=== PATIENT | female | born 1980 | race Caucasian/White ===

== ENCOUNTER 2017-06-24 12:25 | Emergency (ER) | payer OTHER ==
[2017-06-24 12:57] VITALS: BP 113/83
--- NOTE | 2017-06-24 13:08 | UC ---
Throat Pain/Nasal Ryan HPI - HPI Summary HPI Summary: Pt presents with sore throat for 2 weeks and sinus pain/pressure/congestion for 1 week. She tells me that she is 17 weeks . Has been taking tylenol for her discomfort with good relief. Denies fever, chills, cough, SOB, chest pain, abdominal pain/cramping. - History of Current Complaint Chief Complaint: UCRespiratory Stated Complaint: SINUS ISSUE Time Seen by Provider: 06/24/17 13:08 Hx Obtained From: Patient Hx Last Menstrual Period: 02/21/17 ?: Yes - 17 weeks Onset/Duration: Gradual Onset Severity: Moderate Pain Intensity: 6 Pain Scale Used: 0-10 Numeric - Allergies/Home Medications Allergies/Adverse Reactions: Allergies Allergy/AdvReac Type Severity Reaction Status Date / Time clarithromycin [From Biaxin] Allergy Anaphylatic Verified 06/24/17 12:58 Shock Home Medications: Home Medications Acetaminophen [Tylenol] 500 mg PO ONCE 06/24/17 [History Confirmed 06/24/17] Doxylamine/Pyridoxine(NF) [Diclegis (NF)] 1 tab PO BEDTIME 06/24/17 [History Confirmed 06/24/17] PMH/Surg Hx/FS Hx/Imm Hx Previously Healthy: Yes Respiratory History: Asthma - Surgical History Surgical History: Yes Surgery Procedure, Year, and Place: sinus surgery, tonsillectomy - Family History Known Family History: Positive: Respiratory Disease - Social History Occupation: Employed Full-time Lives: With Family Alcohol Use: None Substance Use Type: None Smoking Status (MU): Never Smoked Tobacco Review of Systems Constitutional: Negative Skin: Negative Eyes: Negative ENT: Sore Throat, Nasal Discharge, Sinus Congestion, Sinus Pain/Tenderness Respiratory: Negative Cardiovascular: Negative Gastrointestinal: Negative Musculoskeletal: Negative Neurological: Negative Psychological: Negative All Other Systems Reviewed And Are Negative: Yes Physical Exam - Summary Physical Exam Summary: GENERAL: NAD. WDWN HEENT: NC/AT. Conjunctiva clear without inflammation or discharge. TMs intact , no bulging, erythema, or edema. Nasal mucosa mildly swollen and erythematous with yellow/clear discharge. No polyps noted. TTP maxillary and frontal sinus. Posterior oropharynx without exudates, erythema, or tonsillar enlargement. Uvula midline. NECK: Supple without lymphadenopathy CHEST: CTAB. No r/r/w. No accessory muscle use. Breathing comfortably and in no distress. CV: RRR. Without m/r/g. Pulses intact. SKIN: No rash or erythema noted. NEURO: Alert. CN II-XII grossly intact. PSYCH: Age appropriate behavior. Triage Information Reviewed: Yes Vital Signs: Initial Vital Signs Temp 98.4 F 06/24/17 12:54 Pulse 85 06/24/17 12:54 Resp 18 06/24/17 12:54 BP 113/83 06/24/17 12:54 Pulse Ox 100 06/24/17 12:54 Throat Pain/Nasal Course/Dx - Course Course Of Treatment: POC flu negative. Sinusitis - Differential Dx/Diagnosis Provider Diagnoses: Sinusitis Discharge - Discharge Plan Condition: Stable Disposition: HOME Prescriptions: Amoxicillin PO (*) [Amoxicillin 500 MG CAP*] 500 mg PO Q12H #20 cap Patient Education Materials: Sinusitis (ED) Referrals: Alpa Ellison [Primary Care Provider] - Additional Instructions: If you develop a fever, shortness of breath, chest pain, new or worsening symptoms - please call your PCP or go to the ED.
== END 2017-06-24 13:43 | disposition home or self-care (01) ==
LOC: UCEAST 12:25
DX: O26.892 Other specified pregnancy related conditions, second trimester (principal); J32.9 Chronic sinusitis, unspecified; Z3A.17 17 weeks gestation of pregnancy; J45.909 Unspecified asthma, uncomplicated; Z88.1 Allergy status to other antibiotic agents
CPT/HCPCS: 87502; 99212; G0463

== ENCOUNTER 2017-11-18 06:20 | Inpatient (IN) | payer BC ==
[2017-11-18 06:56] LABS: ABS Basophils 0.1 10^3/ul (0-0.2); ABS Eosinophils 0.1 10^3/ul (0-0.6); ABS Lymphocytes 1.5 10^3/ul (1.0-4.8); ABS Monocytes 0.8 10^3/ul (0-0.8); ABS Neutrophils 10.4 10^3/ul (1.5-7.7); ABS Nucleated RBC 0 10^3/ul; Hematocrit 38 % (35-47); Hemoglobin 12.7 g/dl (12.0-16.0); Lymphocyte % 11.4 % (25-47); Mean Corpuscular HGB Conc 34 g/dl (31-36); Mean Corpuscular Hemoglobin 31 pg (27-31); Mean Corpuscular Volume 91 fL (80-97); Mean Platelet Volume 9.1 um3 (7.4-10.4); Nucleated Red Blood Cells % 0; Platelet Count 224 10^3/ul (150-450); Red Blood Count 4.15 10^6/ul (4.00-5.40); Red Cell Distribution Width 15 % (10.5-15); White Blood Count 12.8 10^3/ul (3.5-10.8)
[2017-11-18] MEDS ORDERED: OBEPIDURAL* 0 ML EPIDURAL ONE (07:02)
--- NOTE | 2017-11-18 07:09 | HP ---
General Information - Reason for Visit labor - General Information Maternal Age: 37 Grav: 3 Para: 2 Estimated Due Date: 11/28/17 Determined By: LMP Gestational Age in Weeks/Days: 38w4d Maternal Blood Type and Rh: B Positive - Results this Serology/RPR Result: Non-Reactive Rubella Result: Immune HBsAg Result: Negative HIV Result: Negative GBS Culture Result: Negative Past Medical History Delivery History: Hx Uncomplicated Vaginal Delivery Past Medical History Comment: asthma--on medication depression/anxiety--no medications at present Past Surgical History Comment: tonsillectomy 2005 laparoscopy for endometriosis 2009 removal of sinus turbinates 2006 Pertinent Family History: See Records - age 36, declined genetic testing Review of Systems Constitutional: Uncomfortable CV Complaint: No Respiratory: Shortness of Breath: No Gastrointestinal: Soft Stool Genitourinary: No Leaking Fluid Musculoskeletal: Contractions Neurological: No Headache, No Visual Changes Movement: Normal Exam Allergies/Adverse Reactions: Allergies clarithromycin [From Biaxin] Allergy (Verified 10/10/17 21:15) Anaphylatic Shock Lab Values - Entire Visit: Laboratory Tests 11/18/17 06:42 WBC 12.8 H RBC 4.15 Hgb 12.7 Hct 38 MCV 91 MCH 31 MCHC 34 RDW 15 Plt Count 224 MPV 9.1 Neut % (Auto) 81.2 Lymph % (Auto) 11.4 L [place] % (Auto) 6.0 Eos % (Auto) 1.0 Baso % (Auto) 0.4 Absolute Neuts (auto) 10.4 H Absolute Lymphs (auto) 1.5 Absolute Monos (auto) 0.8 Absolute Eos (auto) 0.1 Absolute Basos (auto) 0.1 Absolute Nucleated RBC 0 Nucleated RBC % 0 - Measurements Height: 5 ft 1 in Weight: 208 lb Body Mass Index (BMI): 39.2 Pre- Weight: 160 lb - Exam Breast: - - soft, no masses Extremities: No Edema Heart: Normal Rhythm/Heart Sounds HEENT: No Significant Findings Lungs: Clear Bilaterally Reflexes: DTR 2+ Thyroid: No Thyromegaly Targeted Exam Findings See L&D Outpatient Visit Provider Note for Findings: N/A Estimated Weight: 7.5 lbs Cervical Exam: 6cm Effacement: 90% Station: -1 Presenting Part: Vertex Membrane Status: Intact EFM Findings - External Monitor Findings Baseline Heart Rate: 150 External Monitor Findings: Accelerations Present, No Pattern of Variable or Late Decelerations, Variability Moderate External Monitor Findings Comment: category 1 Contractions: Strong, 45-90 Seconds Contraction Frequency: every 2-3 minutes Assessment/Plan - Assessment at 38w 4 days, active labor Wants epidural - Plan Plan: Admit - Anticipate Vaginal Delivery - Date/Time of Admission Date of Admission: 11/18/17 Time of Admission: 06:40
[2017-11-18] MEDS ORDERED: fentaNYL* 50 MCG/ML 2 ML VIAL (100 MCG VIAL) ONE (07:37)
[2017-11-18] MEDS ORDERED: Oxytocin in LR* 20 UNITS/1,000 ML BAG IVPB ONE (08:03)
[2017-11-18] MEDS ORDERED: Dibucaine 1% 28.35 GM TUBE PR PRN (08:47)
[2017-11-18] MEDS ORDERED: Witch Hazel PAD* JAR TOPICAL PRN (08:47)
[2017-11-18] MEDS ORDERED: Glycerin ADULT SUPP PR PRN (08:47)
--- NOTE | 2017-11-18 08:55 | PROCNOTE ---
[facility]: Delivery Note - Nursery Level of Nursery: Regular/Bedside - Perineum Perineal Injury: 1st Degree Perineal Repair: By Delivering Practioner - Additional Delivery Notes Additional Delivery Notes: SVB LFC, OA, over 1st deg perineal lac. CAN x1, delivered through loop. pink with stimulation. Facial bruising. Placenta Sariah. FF with massage , IV with pitocin running. Laceration repaired with 3-0 and 4-0 ccg under 1% lidocaine local. Baby weight 7#4oz, Apgars 9/9. EBL 150cc.
[2017-11-18] MEDS ORDERED: Phenylephrine IV* 40 MCG/ML 10 ML SYRINGE IV PUSH PRN ×2 (08:56)
[2017-11-18] MEDS ORDERED: Sodium Citrate/Citric Acid* 15 ML UDC PO PRN (08:56)
[2017-11-18] MEDS ORDERED: Famotidine TAB* 20 MG PO PRN (08:56)
--- NOTE | 2017-11-18 08:57 | PN ---
Progress Note - Progress Note Date of Service: 11/18/17 Note: Pt sitting up for epidural at 0725, began involuntarily pushing, checked, was fully, 0 station but in too much pain to push. Intrathecal done with good relief. Pt allowed to rest, began pushing at 0800. See delivery note for full details
[2017-11-18] MEDS ORDERED: OBEPIDURAL* 250 ML EPIDURAL SCH (09:00)
[2017-11-18] MEDS ORDERED: Oxytocin in LR* 20 UNITS/1,000 ML BAG IVPB SCH (09:00)
[2017-11-18] MEDS ORDERED: Sertraline* 25 MG TAB PO SCH (09:00)
[2017-11-18] MEDS: Docusate CAP* 100 MG PO SCH ×3 (09:34→21:11)
[2017-11-18] MEDS ORDERED: Phenylephrine IV* 40 MCG/ML 10 ML SYRINGE ONE (11:45)
[2017-11-18] MEDS: Ibuprofen TAB* 600 MG PO PRN ×2 (12:09→18:10)
[2017-11-18] MEDS: Acetaminophen TAB* 325 MG PO PRN ×2 (16:19→21:23)
[2017-11-18] MEDS: Sertraline* 25 MG TAB PO SCH (21:11)
[2017-11-19] MEDS: Ibuprofen TAB* 600 MG PO PRN ×3 (00:15→15:49)
[2017-11-19 06:15] LABS: Hematocrit 33 % (35-47); Hemoglobin 11.2 g/dl (12.0-16.0); Mean Corpuscular HGB Conc 34 g/dl (31-36); Mean Corpuscular Hemoglobin 31 pg (27-31); Mean Corpuscular Volume 91 fL (80-97); Mean Platelet Volume 8.9 um3 (7.4-10.4); Platelet Count 189 10^3/ul (150-450); Red Cell Distribution Width 15 % (10.5-15); White Blood Count 9.9 10^3/ul (3.5-10.8)
[2017-11-19] MEDS: Docusate CAP* 100 MG PO SCH ×3 (08:14→20:55)
[2017-11-19] MEDS: Acetaminophen TAB* 325 MG PO PRN ×2 (11:16→20:55)
[2017-11-19] MEDS: Ferrous Gluconate TAB* 324 MG TAB PO SCH (15:44)
[2017-11-19] MEDS: Sertraline* 25 MG TAB PO SCH (20:55)
[2017-11-20] MEDS: Ibuprofen TAB* 600 MG PO PRN ×2 (00:32→08:49)
[2017-11-20] MEDS: Acetaminophen TAB* 325 MG PO PRN (04:21)
[2017-11-20 07:59] VITALS: BP 115/57
[2017-11-20] MEDS: Ferrous Gluconate TAB* 324 MG TAB PO SCH (12:28)
[2017-11-20] MEDS: Docusate CAP* 100 MG PO SCH (12:28)
== END 2017-11-20 12:20 | disposition home or self-care (01) | DRG 560 ==
LOC: MCHOBOUT 06:20 → MCHOB 06:32
PROVIDERS: ADMIT Midwife; ATTEND Midwife
PROC: 10E0XZZ Delivery of Products of Conception, External Approach (ICD-10-PCS; principal; 2017-11-18)
PROC: 4A1HX4Z Monitoring of Products of Conception, Cardiac Electrical Activity, External Approach (ICD-10-PCS; 2017-11-18)
PROC: 0HQ9XZZ Repair Perineum Skin, External Approach (ICD-10-PCS; 2017-11-18)
DX: O69.1XX0 Labor and delivery complicated by cord around neck, with compression, not applicable or unspecified (principal); O99.62 Diseases of the digestive system complicating childbirth; K21.9 Gastro-esophageal reflux disease without esophagitis; Z88.1 Allergy status to other antibiotic agents; Z3A.38 38 weeks gestation of pregnancy; Z37.0 Single live birth; O70.0 First degree perineal laceration during delivery
CPT/HCPCS: 36415; 85025; 85027; 86850; 86900; 86901; A9270-GY; J3010